=== PATIENT | female | born 1985 | race Caucasian/White ===

== ENCOUNTER 2017-05-20 16:05 | Emergency (ER) | payer MEDICAID ==
[~2017-05-20] VITALS: Ht 152.4 cm; Wt 57.0 kg
[~2017-05-20 16:05] MED LIST: CEPH-443 PO; PREN-46 PO
[2017-05-20 16:09] VITALS: Ht 152.4 cm; Wt 57.0 kg
--- NOTE | 2017-05-20 17:08 | RADRPT ---
PROCEDURE: US OB. CLINICAL INDICATION: Size and dates , pelvic pain TECHNIQUE: Multiple sonographic images of the pelvis and gravid uterus were obtained. The images were reviewed on a PACS workstation. COMPARISON: No prior studies are available for comparison. FINDINGS: The cervix is closed with a length of 4.1 cm. There is a single viable intrauterine gestation. Cardiac activity is present with 156 beats per min [place]. There is a variable presentation. The placenta is anterior. There is no evidence for an abruption or placenta previa. MVP = 4.3 cm. Measurements were made in order to determine age. The results are as follows: BPD =2.8 cm HC =10.6 cm AC =8.8 cm FL =1.4 cm Estimated gestational age of approximately 14 weeks and 6 days based on ultrasound measurements. Clinical age: 15 weeks and 1 day. The estimated date of delivery is 11/12/2017, based on ultrasound measurements. The EFW = 102 g, 11.2 %, based on LMP age. The ovaries are not visualized. RPTAT: AA IMPRESSION: Single viable intrauterine gestation of approximately 14 weeks and 6 days based on ultrasound measu rements. .Richard Colorado MD, Date Time Electronically viewed and signed by .Richard Colorado MD, on 05/20/2017 17:08 .S/
--- NOTE | 2017-05-20 17:52 | ERD ---
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 Patient reports that they could not detect any heart tones on her ultrasound yesterday. Reports that she obtained blood work including beta Hcg yesterday and is here only for the ultrasound. Reports that she has some intermittent lower pelvic pain. Denies any vaginal bleeding, vaginal discharge, dysuria, urgency, frequency, hematuria, nausea, vomiting, abdominal pain. States that her last menstruation was on February 03, 2017. ROS All systems reviewed and are negative except as per history of present illness. Medications Home Meds Active Scripts Cephalexin* (Keflex*) 500 Mg Capsule, 500 MG PO QID for 7 Days, CAP Prov:AMADOMURPHY X. 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 In no acute distress. Head: Atraumatic, normocephalic Eyes: Normal Conjunctiva without injection. No purulent discharge. ENT: Normal external ear, nose. Moist oropharynx without tonsillar exudates. Non -erythematous pharynx. Uvula midline. No drooling. No trismus. Neck: No cervical midline tenderness. Full range of motion. No meningismus. No cervical lymphadenopathy. No JVD. Resp: Clear to auscultation bilaterally. No wheezing, rhonchi, rales, or crackles. No accessory muscle use. No retractions. Cardio: Regular rate and rhythm. No murmurs, rubs or gallops. Abd: Soft, nontender, non distended. Normal bowel sounds. No palpable masses. No rebound tenderness. No guarding. Negative McBurney's point. Negative psoas sign. Negative obturator sign. Skin: No petechiae or rashes Back: No midline tenderness. No CVA tenderness. Ext: No cyanosis, or edema. Neur: Awake and alert. Normal gait. Normal coordination. 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 Patient is afebrile and nontoxic-appearing. Her son was ordered to further evaluate patient. PROCEDURE: US OB. CLINICAL INDICATION: Size and dates , pelvic pain TECHNIQUE: Multiple sonographic images of the pelvis and gravid uterus were obtained. The images were reviewed on a PACS workstation. COMPARISON: No prior studies are available for comparison. FINDINGS: The cervix is closed with a length of 4.1 cm. There is a single viable intrauterine gestation. Cardiac activity is present with 156 beats per minute. There is a variable presentation. The placenta is anterior. There is no evidence for an abruption or placenta previa. MVP = 4.3 cm. Measurements were made in order to determine age. The results are as follows: BPD = 2.8 cm HC = 10.6 cm AC = 8.8 cm FL = 1.4 cm Estimated gestational age of approximately 14 weeks and 6 days based on ultrasound measurements. Clinical age: 15 weeks and 1 day. The estimated date of delivery is 11/12/2017, based on ultrasound measurements. The EFW = 102 g, 11.2 %, based on LMP age. The ovaries are not visualized. RPTAT: AA IMPRESSION: Single viable intrauterine gestation of approximately 14 weeks and 6 days based on ultrasound measurements. Patient has a single viable intrauterine approximately 14 weeks and 6 days based on ultrasound. heart tones are 156 bpm. Low suspicion for symptomatic anemia, ectopic , sepsis, PID, appendicitis, ovarian torsion, preeclampsia, eclampsia, placenta previa, placenta abruptio, tubo- ovarian abscess, surgical abdomen, or other emergent conditions. Patient to follow up with L[employer] TRAINER TEACHER in 2 days for further evaluation and treatment. Patient is to return sooner to the ED for any worsening symptoms. Patient's questions were answered. Patient understood and agreed with discharge plan. Departure Diagnosis: Primary Impression: Encounter for laboratory test Condition: Stable Patient Instructions: : Your Second Trimester Changes, Adapting to : Second Trimester Referrals: [facility] YOU HAVE RECEIVED A MEDICAL SCREENING EXAM AND THE RESULTS INDICATE THAT YOU DO NOT HAVE A CONDITION THAT REQUIRES URGENT TREATMENT IN THE EMERGENCY DEPARTMENT. FURTHER EVALUATION AND TREATMENT OF YOUR CONDITION CAN WAIT UNTIL YOU ARE SEEN IN YOUR DOCTORS OFFICE WITHIN THE NEXT 1-2 DAYS. IT IS YOUR RESPONSIBILITY TO MAKE AN APPOINTMENT FOR FOLOW-UP CARE. IF YOU HAVE A PRIMARY DOCTOR --you should call your primary doctor and schedule an appointment IF YOU DO NOT HAVE A PRIMARY DOCTOR YOU CAN CALL OUR PHYSICIAN REFERRAL HOTLINE AT IF YOU CAN NOT AFFORD TO SEE A PHYSICIAN YOU CAN CHOSE FROM THE FOLLOWING [facility] [address] [facility]. [facility] [address] [facility] [address] [facility] [address] [facility]. [facility] [address] [facility]. [facility] [address] [facility]. [facility] YOU HAVE RECEIVED A MEDICAL SCREENING EXAM AND THE RESULTS INDICATE THAT YOU DO NOT HAVE A CONDITION THAT REQUIRES URGENT TREATMENT IN THE EMERGENCY DEPARTMENT. FURTHER EVALUATION AND TREATMENT OF YOUR CONDITION CAN WAIT UNTIL YOU ARE SEEN IN YOUR DOCTORS OFFICE WITHIN THE NEXT 1-2 DAYS. IT IS YOUR RESPONSIBILITY TO MAKE AN APPOINTMENT FOR FOLOW-UP CARE. IF YOU HAVE A PRIMARY DOCTOR --you should call your primary doctor and schedule and appointment IF YOU DO NOT HAVE A PRIMARY DOCTOR YOU CAN CALL OUR PHYSICIAN REFERRAL HOTLINE AT . IF YOU CAN NOT AFFORD TO SEE A PHYSICIAN YOU CAN CHOSE FROM THE FOLLOWING [facility] INSTITUTIONS: [facility] [address] [place] [address] [facility] [address] [place] [address] [facility] + [facility] [address] [place] [address] [facility] URGENT CARE/SPECIALTIES Additional Instructions: Llame al doctor MAANA y anthony yazmin IVA PARA DENTRO DE 2-3 VARGHESE.Dgale a la secretaria que nosotros le instruimos hacer esta iva.Avise o llame si fitzpatrick condicin se empeora antes de la iva. Regresa aqui si peor o no mejor. PIYUSH TIPTON PA-C May 20, 2017 17:52
== END 2017-05-20 17:54 | disposition home or self-care (01) ==
LOC: FTE 16:05
DX: O26.892 Other specified pregnancy related conditions, second trimester (principal); R10.2 Pelvic and perineal pain; Z3A.14 14 weeks gestation of pregnancy
CPT/HCPCS: 76805; Z7502

== ENCOUNTER 2017-11-01 10:02 | Inpatient (IN) | END 2017-11-04 14:16 | disposition home or self-care (01) | DRG 766 ==

== ENCOUNTER 2017-11-13 20:23 | Emergency (ER) | END 2017-11-13 22:23 | disposition home or self-care (01) ==